=== PATIENT | female | born 1985 | race Caucasian/White ===

== ENCOUNTER 2018-06-08 20:15 | Emergency (ER) | payer MEDICAID, OTHER ==
[2018-06-08] MEDS ORDERED: Ketorolac 60 MG/2 ML SDV IM ONE (21:13)
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
[2018-06-08] MEDS ORDERED: Orphenadrine 100 MG Tab.ER PO STA (22:18)
--- NOTE | 2018-06-09 07:43 | CT ---
CT cervical spine Technique: Multiple axial sections were obtained from above C1 inferiorly to the bottom of T2. Reconstructed sagittal and coronal images were reviewed. Comparison: No prior cervical spine imaging. Findings: Vertebral body heights and disc spaces are maintained. Vertebral bodies and posterior arches are intact with no fracture being seen. No abnormal subluxation is seen on the reconstructed sagittal images. No bony central or neural foraminal stenosis is seen. Incidental note of mild mucosal thickening within the sphenoid sinus. Impression: 1. Mucosal thickening within the sphenoid sinus most likely due to chronic sinusitis. 2. Nothing acute is appreciated on CT study of the cervical spine. Diagnostic code #2 I agree with preliminary report issued by [facility] ([facility] report finalized on 06/09/18, 12:11 AM Central Time)
--- NOTE | 2018-06-09 07:43 | CT ---
Head CT Technique: Multiple axial sections through the brain were obtained. Intravenous contrast was not utilized. Comparison: No prior intracranial imaging. Findings: Ventricles along with basal cisterns and sulci over the convexities are within normal limits for the patient's age. No abnormal parenchymal densities are seen. No evidence of intracranial hemorrhage. No midline shift or mass effect is seen. Bone window settings were reviewed which show no acute calvarial abnormality. Mucosal thickening noted to the right side of the sphenoid sinus. Impression: 1. Right sided sphenoid sinus findings most likely due to chronic sinusitis. 2. No acute intracranial abnormality is identified. Diagnostic code #2 I agree with preliminary report issued by [facility] ([facility] report finalized on 06/08/18, 11:50 PM Central Time)
--- NOTE | 2018-06-09 12:02 | CT ---
CT lumbar spine Technique: Multiple axial sections through the thoracic spine were obtained. Reconstructed coronal and sagittal images were reviewed. Vertebral body heights and disc spaces are preserved. No traumatic disc herniation is seen. No central or neural foraminal stenosis is seen. No abnormal subluxation is seen. Slightly abnormal alignment identified within the coccyx. Impression: 1. Slightly abnormal alignment of the coccyx. This may be developmental but please exclude any symptoms to suggest fracture. 2. CT study of the lumbar spine is otherwise unremarkable. Diagnostic code #3 I agree with preliminary report issued by [facility] ([facility] report finalized on 06/09/18, 12:07 AM Central Time)
--- NOTE | 2018-06-09 12:02 | CT ---
CT thoracic spine: Multiple axial sections through the thoracic spine were obtained. Reconstructed coronal and sagittal images were reviewed. Findings: Minimal scattered anterior endplate osteophytes are seen. Vertebral body heights are maintained. Vertebral bodies and posterior arches are intact with no fracture being seen. No bony central or bony neural foraminal stenosis is seen. No abnormal subluxation is seen. Impression: 1. Minimal scattered anterior endplate osteophytes. 2. Nothing acute is identified on CT study of the thoracic spine. Diagnostic code #2 I agree with preliminary report issued by [facility] ([facility] report finalized on 06/09/18, 12:08 AM Central Time)
== END 2018-06-08 23:30 | disposition home or self-care (01) ==
LOC: JD.ED 20:15
DX: S13.4XXA Sprain of ligaments of cervical spine, initial encounter (principal); F17.210 Nicotine dependence, cigarettes, uncomplicated; Z88.2 Allergy status to sulfonamides; Z88.1 Allergy status to other antibiotic agents; V89.2XXA Person injured in unspecified motor-vehicle accident, traffic, initial encounter
CPT/HCPCS: 70450; 72125; 72128; 72131; 81001; 81025; 96372; 99284; A9270; J1885; 99283